=== PATIENT | female | born 1990 | race Caucasian/White ===

== ENCOUNTER → 2018-06-12 | Day surgery (SDC) | payer OTHER ==
[~2018-06-12] VITALS: Ht 165.1 cm; Wt 66.7 kg
--- NOTE | 2018-06-12 13:58 | Operative Report ---
Operative/Inv Procedure Report Surgery Date: 06/12/18 Name of Procedure: Endoscopic surgery with 1. nasal septal reconstruction 2. Middle turbinate dez bullosa excision, bilateral 3. Inferior turbinate submucous resection, bilateral Pre-Operative Diagnosis: 1. Deviated nasal septum 2. Inferior turbinate hypertrophy, bilateral 3. Middle turbinate dez bullosa, bilateral Post-Operative Diagnosis: Same Estimated Blood Loss: less than 50ml Surgeon/Airline Pilot/First Officer: Vaishali Brandt MD Anesthesia: general endotracheal tube Specimens: Septum and inferior turbinates Middle turbinates Microbiology: Non- Complications: Non- Condition: Stable on leaving the OR Operative Indication: Difficulty breathing through the nose, nasal congestion x several years Frequent facial pressures and headaches Operative/Procedure Note Note: The patient was brought to the operating room. Placed on the operating room table in supine position. At first timeout was performed identifying the patient, ID numbers and procedure to be performed. Next general oral endotracheal anesthesia was induced. Endotracheal tube was secured with tape over the left corner of the lip. Operating room table was rotated 90 to the left and patient was positioned for septal surgery with head slightly hyperextended and rotated to the right. At first vasoconstriction was carried by application of Afrin spray on cottonoid pledgets. Next nasal septum was injected with 1% lidocaine with 1: 100,000 epinephrine approximately 9 mL was injected on the right and another 6 mL on the last. This followed by placement of cotton pledgets saturated with cocaine solution and Afrin spray. Patient's face was then prepped and draped in routine manner and surgery was performed. A right hemitransfixion incision was placed and anterior mucoperichondrial tunnel was elevated followed by posterior mucoperiosteal tunnel. Bony cartilaginous junction was identified and and mucoperiosteal tunnel was elevated on the contralateral side. And anteriorly there was quadrangular cartilage deviation to the right. Quadrangular cartilage was removed in a piecemeal manner until the anterior deviation was relieved.. Maxillary crest was chizled to relive inferior obstruction. Posteriorly there was vomerine bone spurring with septum wedging into the middle meatus. Vomerine spur was removed in a piecemeal manner until the obstruction was relieved. During the removal a tear was encountered and mucoperiosteum which was to serve as a drainage hole. Reexamination of the nasal fossa reveals septum to be in the midline. Septoplasty was completed. Once the septoplasty was completed, prior to closure, left middle turbinate and middle meatus were injected with 3 mL cc of 1% lidocaine with 1:100,000 epinephrine. This followed by placement of cottonoid pledgets saturated with Afrin and cocaine. Septoplasty incision was closed with 5-0 chromic simple sutures. Followed by a mattress sutures with 5-0 chromic. Please note that the entire septoplasty was carried with 0 scope as well as directed visualization with a headlight. Upon closure of septoplasty incision injection was carried out on the right. Right middle turbinate and middle meatus were injected with 3 cc of 1% lidocaine with 1:100,000 epinephrine. This followed by placement of cottonoid pledgets saturated with Afrin and cocaine. Next with 0 sinus scope middle turbinates on the left was examined. Middle turbinate had dez bullosa that was completely obstructing the middle meatus. Jeremy forceps were used to collapse the turbinate by crushing the bony cell . Gruenwald forceps were used to remove the inferior aspect of the middle turbinate. This improved ventilation of the middle meatus and obstruction was relieved. Next similar surgery was scheduled on the right. Again whith 0 sinus scope middle turbinates on the right was examined. Middle turbinate had dez bullosa that was completely obstructing the middle meatus. Jeremy forceps were used to collapse the turbinate by crushing the bony cell . Gruenwald forceps were used to remove the inferior aspect of the middle turbinate. This improved ventilation of the middle meatus and obstruction was relieved. Next inferior turbinates were addressed. Inferior turbinates were markedly hypertrophied with obstruction of the inferior meatus. The inferior turbinates were then outfractured with Eid forceps. This follow-up by submucous resection. The surgery was at first carried on the left and then on the right. Upon completion inferior meatus was widely patent. Surgery was completed. Nasal packing was applied next. Nasal fossa was packed with Telfa saturated with Bactroban ointment. Telfa was stitched anteriorly with 2-0 silk to prevent posterior displacement. This followed by injection of Helotene slurry into the middle meatus, at first on the left and then on the right. Surgery was completed. The patient was reawakened, extubated and taken to the recovery room in good condition. There were no complications. Estimated blood was 30 mL. Findings: 1. Nasal septum- deviated to the right anterior, quadrangular cartilage, maxillary crest Deviated to the right posterior vomerine bone with spurring 4. Middle turbinates- bilateral dez bullosa with obstruction of the middle meatus bilateral 5. Inferior Turbinates- hypertrophy with obstruction of the inferior meatus Discharge Disposition: PACU
== END ==
LOC: STS 01:30
DX: J34.2 Deviated nasal septum (principal); J34.3 Hypertrophy of nasal turbinates; J32.8 Other chronic sinusitis; R51 Headache
CPT/HCPCS: 81025; 88304; 88305; J0131; J0690; J1100; J2250; J2405; J2765